=== PATIENT | male | born 1940 | race African-American/Black ===

== ENCOUNTER 2022-05-28 10:04 | Emergency (ER) | payer OTHER ==
[2022-05-28] MEDS ORDERED: DEXAMETHASONE SOD PHOSPHATE 10 MG/1 ML VIAL IVPUSH ONE (10:14)
[2022-05-28 10:17] VITALS: BP 147/76; PULSE 83; RESP 20; TEMP 99; BMI 25.8
[2022-05-28] MEDS ORDERED: DEXAMETHASONE SOD PHOSPHATE 10 MG/1 ML VIAL ONE (10:22)
[2022-05-28 11:08] LABS: HEMOGLOBIN 12.3 GM/dL (11.7-16.9); MCH 29.8 pg (25.7-33.7); MCHC 33.1 g/dl (32.0-35.9); MEAN CELL VOLUME 90.2 fl (80-96); PLATELET COUNT 199 10^3/uL (134-434); RDW 13.9 % (11.9-15.9); VENOUS BASE EXCESS 6.1 mmol/L (-2-2); VENOUS O2 SATURATION 93.9 % (70-80); VENOUS PCO2 38.8 mmHg (38-52); VENOUS PH 7.501 (7.310-7.410); WHITE BLOOD COUNT 5.2 K/mm3 (4.0-10.0)
[2022-05-28 11:26] LABS: CHLORIDE 97 mmol/L (98-107); SODIUM 138 mmol/L (136-145)
[2022-05-28 11:29] LABS: ALBUMIN 3.3 g/dl (3.4-5.0); BLOOD UREA NITROGEN 10.1 mg/dL (7-18); CO2 31 mmol/L (21-32); GLUCOSE,RANDOM 136 mg/dL (74-106); MAGNESIUM 1.7 mg/dL (1.8-2.4)
[2022-05-28 11:32] LABS: SGOT/AST 41 U/L (15-37); SGPT/ALT 47 U/L (13-61)
[2022-05-28 11:33] LABS: BILIRUBIN,TOTAL 0.7 mg/dL (0.2-1)
[2022-05-28 11:34] LABS: TOT PROT 6.5 g/dl (6.4-8.2)
[2022-05-28 11:35] LABS: ALK PHOS 58 U/L (45-117); ANION GAP 11 MMOL/L (8-16)
[2022-05-28 11:37] LABS: ANISOCYTOSIS 0; HELMET CELLS 0; HOWELL-JOLLY BODIES 0; MACROCYTOSIS 0; OVALOCYTE 0; ROULEAU 0; SICKELED CELLS 0; TARGET CELLS 0; TEAR DROP CELLS 0; TOXIC GRANULATION 0
[2022-05-28] MEDS ORDERED: POTASSIUM CHLORIDE TABS 20 MEQ TABLET.ER (FP) PO ONE ×2 (11:38→11:43)
[2022-05-28] MEDS ORDERED: KCL 10 MEQ IVPB 10 MEQ/100 ML INFUS.BAG IVPB ONE ×3 (11:44→16:32)
[2022-05-28] MEDS ORDERED: MAGNESIUM 1GM/D5W - 1 GM/100 ML IVPB IVPB ONE (11:44)
[2022-05-28] MEDS: KCL 10 MEQ IVPB 10 MEQ/100 ML INFUS.BAG IVPB SCH ×3 (11:56→17:08)
== END 2022-05-28 21:43 ==
LOC: JER 10:04
PROC: 3E033GC Introduction of Other Therapeutic Substance into Peripheral Vein, Percutaneous Approach (ICD-10-PCS; principal; 2022-05-28)
PROC: 3E033GC Introduction of Other Therapeutic Substance into Peripheral Vein, Percutaneous Approach (ICD-10-PCS; 2022-05-28)
DX: U07.1 COVID-19 (principal)
CPT/HCPCS: 0241U-QW; 36415; 71045-TC-FY; 80053; 82803; 82962; 83735; 84484; 85025; 93005; 93010; 99285-25

== ENCOUNTER 2022-06-17 12:49 | Emergency (ER) | payer OTHER ==
[2022-06-17 13:02] VITALS: BP 146/73; PULSE 69; RESP 20; TEMP 99.5; BMI 24.2
[2022-06-17] MEDS ORDERED: SODIUM CHLORIDE 0.9% 500 ML INFUS.BAG IV ONE (13:03)
[2022-06-17 14:43] LABS: BASO % 1.1 % (0-2.0); EOS % 1.1 % (0-4.5); HEMOGLOBIN 11.5 GM/dL (11.7-16.9); LYMPH % 22.3 % (8-40); MCH 30.6 pg (25.7-33.7); MEAN CELL VOLUME 90.2 fl (80-96); MEAN PLT VOLUME 8.1 fl (7.5-11.1); NEUT % 63.5 % (42.8-82.8); PLATELET COUNT 275 10^3/uL (134-434); RBC 3.77 M/mm3 (4.00-5.60); RDW 13.9 % (11.9-15.9); WHITE BLOOD COUNT 5.2 K/mm3 (4.0-10.0)
[2022-06-17] MEDS ORDERED: POLYETHYLENE GLYCOL (HEALTHYLAX) 3350 17 GM PACKET PO ONE (15:00)
[2022-06-17 15:06] LABS: ALBUMIN 3.5 g/dl (3.4-5.0); BLOOD UREA NITROGEN 6.9 mg/dL (7-18)
[2022-06-17 15:07] LABS: MAGNESIUM 1.8 mg/dL (1.8-2.4)
[2022-06-17 15:09] LABS: PHOSPHOROUS 2.2 mg/dL (2.5-4.9)
[2022-06-17 15:10] LABS: BILIRUBIN,TOTAL 0.4 mg/dL (0.2-1); TOT PROT 6.2 g/dl (6.4-8.2)
[2022-06-17] MEDS ORDERED: POLYETHYLENE GLYCOL (HEALTHYLAX) 3350 17 GM PACKET ONE (15:11)
[2022-06-17 15:17] LABS: URINE APPEARANCE CLEAR; URINE BILIRUBIN NEGATIVE (NEGATIVE); URINE COLOR YELLOW; URINE GLUCOSE (UA) NEGATIVE (NEGATIVE); URINE KETONE TRACE (NEGATIVE); URINE LEUK ESTERASE NEGATIVE (NEGATIVE); URINE NITRITE NEGATIVE (NEGATIVE); URINE PROTEIN NEGATIVE (NEGATIVE)
[2022-06-17] MEDS ORDERED: POTASSIUM CHLORIDE ORAL LIQUID 20 MEQ/15 ML PO ONE (17:37)
[2022-06-17] MEDS ORDERED: POTASSIUM CHLORIDE ORAL LIQUID 20 MEQ/15 ML ONE (17:40)
== END 2022-06-17 19:32 | disposition home or self-care (01) ==
LOC: JER 12:49
DX: K59.00 Constipation, unspecified (principal)
CPT/HCPCS: 0241U-QW; 36415; 74019-TC-FY; 80053; 81003; 83690; 83735; 84100; 85025; 99284-25